=== PATIENT | female | born 1980 | race Caucasian/White ===

== ENCOUNTER 2016-09-12 11:28 | Emergency (ER) | payer MEDICAID, OTHER ==
[~2016-09-12] VITALS: Ht 167.6 cm; Wt 100.0 kg
[2016-09-12 11:33] VITALS: BP 144/84
[2016-09-12] MEDS ORDERED: ONDANSETRON ODT 8 MG ONE (12:04)
[2016-09-12] MEDS ORDERED: ONDANSETRON ODT 8 MG PO ONE (12:30)
[2016-09-12] MEDS ORDERED: PLEASE ENTER ALLERGIES MC SCH ×2 (12:30)
[2016-09-12] MEDS ORDERED: SODIUM CHLORIDE FLUSH 10ML SYR IVF ONE (13:00)
[2016-09-12] MEDS ORDERED: SODIUM CHLORIDE 0.9% 1,000ML IVBOLUS ONE (13:00)
[2016-09-12 13:11] LABS: ASPARTATE AMINO TRANSFERASE 18 U/L (15-37); BLOOD UREA NITROGEN 13 mg/dL (7-18)
== END 2016-09-12 14:08 | disposition home or self-care (01) ==
LOC: ED 12:48
DX: K52.9 Noninfective gastroenteritis and colitis, unspecified (principal); F12.10 Cannabis abuse, uncomplicated
CPT/HCPCS: 36415; 80053; 81001; 83690; 84703; 85025; 99284; Q0162

== ENCOUNTER 2017-10-20 13:14 | Emergency (ER) | payer MEDICAID, OTHER ==
[~2017-10-20] VITALS: Ht 167.6 cm; Wt 72.6 kg
[2017-10-20 13:15] VITALS: BP 135/84
[2017-10-20] MEDS ORDERED: SODIUM CHLORIDE 0.9% 1,000 ML IV ONE (14:12)
[2017-10-20] MEDS ORDERED: ONDANSETRON 2MG/ML, 2ML ONE (14:18)
[2017-10-20] MEDS ORDERED: FAMOTIDINE 20 MG/2 ML ONE (14:18)
[2017-10-20] MEDS ORDERED: SODIUM CHLORIDE 0.9% 1,000ML IVBOLUS ONE (14:30)
[2017-10-20] MEDS ORDERED: ONDANSETRON 2MG/ML, 2ML IVPush ONE (14:30)
[2017-10-20] MEDS ORDERED: FAMOTIDINE 20 MG/2 ML IVP ONE (14:30)
[2017-10-20] MEDS ORDERED: LORazepam 2 MG/ML, 1ML ONE (14:35)
[2017-10-20 14:48] LABS: BASOPHILS # (AUTO) 0.14 x10^3/uL (0-0.1); BASOPHILS % (AUTO) 1 % (0-1); EOSINOPHILS # (AUTO) 0.04 x10^3/uL (0-0.4); EOSINOPHILS % (AUTO) 0 % (1-7); LYMPHOCYTES % (AUTO) 24 % (22-44); MD NO; MEAN CORPUSCULAR HEMOGLOBIN 33.9 pg (27.0-34.8); MEAN CORPUSCULAR HGB CONC 33.8 g/dL (32.4-35.8); MEAN CORPUSCULAR VOLUME 100.4 fL (80-100); MEAN PLATELET VOLUME 8.6 fL (7.4-10.4); MONOCYTES % (AUTO) 7 % (2-9); NEUTROPHILS # (AUTO) 8.38 x10^3/uL (1.8-6.8); NEUTROPHILS % (AUTO) 67 % (42-75); PLATELET COUNT 283 x10^3/uL (130-400); RED BLOOD COUNT 4.91 x10^6/uL (3.82-5.3); RED CELL DISTRIBUTION WIDTH 14.2 % (9.6-15.2)
[2017-10-20 14:55] LABS: ALBUMIN 4.5 g/dL (3.4-5.0); ANION GAP 15 mmol/L (5-15); CALCIUM 9.6 mg/dL (8.5-10.1); CHLORIDE 112 mmol/L (98-107)
[2017-10-20] MEDS ORDERED: METOCLOPRAMIDE 5 MG/ML, 2ML ONE (14:55)
[2017-10-20] MEDS ORDERED: LORazepam 2 MG/ML, 1ML IVPush ONE (15:00)
[2017-10-20] MEDS ORDERED: METOCLOPRAMIDE 5 MG/ML, 2ML IVPush ONE (15:00)
[2017-10-20 15:01] LABS: ALANINE AMINOTRANSFERASE 44 U/L (12-78); ALKALINE PHOSPHATASE 54 U/L (45-117); BILIRUBIN,TOTAL 0.8 mg/dL (0.2-1.0); CREATININE 0.61 mg/dL (0.55-1.02); TOTAL PROTEIN 7.6 g/dL (6.4-8.2)
[2017-10-20 16:04] LABS: MICROSCOPIC AUTO
[2017-10-20 16:09] LABS: CULTURE INDICATED? YES
== END 2017-10-20 17:52 | disposition home or self-care (01) ==
LOC: ED 14:05
DX: N30.90 Cystitis, unspecified without hematuria (principal); R11.2 Nausea with vomiting, unspecified; E86.0 Dehydration
CPT/HCPCS: 36415; 80053; 81001; 83690; 84703; 85025; 87086; 96361; 96374; 96375; 99285; J2060; J2405; J2765; J7030; S0028